=== PATIENT | male | born 1975 | race Caucasian/White ===

== ENCOUNTER 2020-05-11 05:42 | Outpatient (RCR) | payer BC ==
[~2020-05-11] VITALS: Ht 182.9 cm; Wt 105.3 kg
[~2020-05-11 05:42] MED LIST: DIAZ5TAB49 PO
[2020-05-14] MEDS ORDERED: HYDR-4342 PO (09:59)
== END 2020-05-11 11:20 | disposition home or self-care (01) ==
LOC: PREOP 05:42
PROVIDERS: ATTEND Surgery
DX: Z01.812 Encounter for preprocedural laboratory examination (principal); K43.2 Incisional hernia without obstruction or gangrene; Z20.828 Contact with and (suspected) exposure to other viral communicable diseases
CPT/HCPCS: 87635

== ENCOUNTER 2020-05-14 09:15 | Day surgery (SDC) | payer BC ==
[2020-05-14] VITALS (11 sets, daily range): BP systolic 123–146; BP diastolic 63–90
[~2020-05-14] VITALS: Ht 182.9 cm; Wt 105.3 kg
--- NOTE | 2020-05-14 09:57 | Progress Note-Pre Operative ---
Pre-Operative Progress Note H&P Reviewed The H&P was reviewed, patient examined and no changes noted. Date Seen by Provider: May 14, 2020 Time Seen by Provider: 09:50 Date H&P Reviewed: May 14, 2020 Time H&P Reviewed: 09:50 Pre-Operative Diagnosis: ventral abdominal incisional hernia LINDA NOBLES MD May 14, 2020 09:57
[2020-05-14] MEDS ORDERED: HYDR-4342 PO (09:59)
--- OUTSIDE RECORDS SUMMARY | 2020-05-14 09:59 | XMS REPORT | Clinical Summary ---
Author Author Admin, Leland Goldberg Organization [facility] Address Unknown Phone Unavailable Allergies, Adverse Reactions, Alerts Allergy Name Reaction Description Start Date Severity Status Pr ovider Allergies Unknown Conditions or Problems Problem Name Problem Code Onset Date Status Entry Date Provider Comment Standard Description Annotate HEALTH EXAMINATION OF DEFINED SUBPOPULATION V70.5 Act max Serenity M[facility] examination of defined subpopulat ions Medication List Medication Instructions Start Date Stop Date Generic Name NDC Status Provider Patient Instruction Drug Treatment Unknown - unknown Procedures Code Procedure Name Date Entry Date Standard Desc ription [id number] Drug Screen Collection - XRAY USE ONLY 0 09:08:55 CDT
--- OUTSIDE RECORDS SUMMARY | 2020-05-14 09:59 | XMS REPORT ---
Author Author Leland COTTO Organization [employer] Address Unknown Phone Unavailable Care Team Providers Care Elementary Supervisor Name Role Phone BRANDO COTTO CP Unavailable Allergies, Adverse Reactions, Alerts Substance Reaction Event Type N.K.D.A. Info Not Available Non Drug Allergy Problems Problem Type Condition Code Onset Dates Condition Statu s Assessment Dental caries K02.9 Active Medications Medication Code System Code Instructions Start Date End Date Status Dosage Valium [facility] [address]-56 not define d ibuprofen NDC 0 not defined [place] [facility] [address]-79 5-325 MG Orally every 6 hrs Nov 11, 2015 J an 2015 1 tablet as needed Lexapro [facility] [address]-62 not define d Penicillin V Potassium [facility] [address]-07 not defined Procedures Procedure Coding System Code Date EXTRAC ERUPTED TOOTH/EXPOSED ROOT CPT-4 D7140 Nov 09, 2015 Vital Signs Date/Time: Nov 11, 2015 Blood Pressure Diastolic 76 mmHg Blood Pressure Systolic 130 mmHg Results No Known Results Summary Purpose [employer] Submission
--- OUTSIDE RECORDS SUMMARY | 2020-05-14 09:59 | XMS REPORT | Clinical Summary ---
Author Author Admin, Leland Goldberg Organization [facility] Address Unknown Phone Unavailable Allergies, Adverse Reactions, [...] Name Date Entry Date Standard Desc ription [id number] Drug Screen Collection - XRAY USE ONLY 0 09:08:55 CDT
--- OUTSIDE RECORDS SUMMARY | 2020-05-14 09:59 | XMS REPORT | Continuity of Care Document ---
Author Organization Unknown Address Unknown Phone Unavailable Allergies Active Description Code Type Severity Reaction Onset Reported/Identified Relationship to Patient Clinical Status Yes No Known Drug Allergies [id number] Drug Allergy Unknown N/A 05/07/2020 Medications There is no data. Problems Date Dx Coded Attending Type Code Diagnosis Diagnosed By 06/11/2019 Z00.8 HEAL TH EXAMINATION OF DEFINED SUBPOPULATION Procedures There is no data. Results Test Result Range Urine Culture - 05/01/20 15:11 PRELIM CULTURE RESULTS No Growth 24 hours FINAL CULTURE RESULTS No Growth 48 hours MEDIA PLATED Setup at 15:18 on 05/01/2020 CULTURE SOURCE culture Encounters ACCT No. Visit Date/Time Discharge Status Pt. Type Provider Facility Loc./Unit Complaint [id number] 07/02/2019 15:47:00 ACT Unknown [id number] 05/01/2020 11:59:00 05/01/2020 23:59 :00 DIS Outpatient Flori Long [id number] 05/01/2020 07:44:00 05/01/2020 23:59 :00 DIS Outpatient Flori Long [id number] 05/11/2020 05:42:00 020 11:20:00 DIS Outpatient LINDA NOBLES MD [facility] [id number] 05/14/2020 09:15:[address] Outpatient LINDA NOBLES MD [facility]
--- OUTSIDE RECORDS SUMMARY | 2020-05-14 09:59 | XMS REPORT ---
Author Author Leland COTTO Organization [employer] Address Unknown Phone Unavailable Care Team Providers Care Sluice Tender Name Role Phone BRANDO COTTO CP Unavailable Allergies, Adverse Reactions, Alerts Substance Reaction Event Type N.K.D.A. Info Not Available Non Drug Allergy Problems Problem Type Condition Code Onset Dates Condition Statu s Assessment Dental examination Z01.20 Active Medications Medication Code System Code Instructions Start Date End Date Status Dosage Penicillin V Potassium [facility] [id number] not defined Valium [facility] [address]-07 not define d Lexapro [facility] [address]-72 not define d [place] [facility] [address]-73 5-325 MG Orally every 6 hrs Nov 09, 2015 J an 2015 1 tablet as needed ibuprofen NDC 0 not defined Procedures Procedure Coding System Code Date INTRAORL-PERIAPICAL 1 FILM 95210 CPT-4 D0220 Nov 09, 2015 LTD ORAL EVALUATION - PROBLEM FOCUS CPT-4 D0140 Nov 09, 2015 Results No Known Results Summary Purpose [employer] Submission
[2020-05-14] MEDS ORDERED: ONDANSETRON 4 MG/2 ML (SDV) Z0FRAN IVP PRN ×2 (10:00→13:15)
[2020-05-14] MEDS ORDERED: oxyCODONE/APAP 5/325MG (PERCOCET 5) TABLET PO PRN (10:00)
[2020-05-14] MEDS ORDERED: ACETAMINOPHEN 325 MG TABLET PO PRN (10:00)
[2020-05-14] MEDS ORDERED: ceFAZolin 2 GM IV Premixed 50 ML IV ONE (10:00)
[2020-05-14] MEDS ORDERED: morphine INJ 10 MG/ML 1ML (SYR OR VIAL) IVP PRN ×2 (10:00)
--- NOTE | 2020-05-14 10:00 | Discharge Inst-Surgical ---
D/C Lap Instructions-GIULIANO New, Converted, or Re-Newed RX: RX on Chart Follow Up Appt in 2 weeks Activity as tolerated No driving for 24 hours No driving while on pain medications Incentive Spirometry use every 2 hours while awake Regular Diet Symptoms to Report: Fever over 101 degree F, Nausea/Vomiting Infection Signs and Symptoms to report: Increased redness, Foul odor of wound, Increased drainage Bathing instructions: May shower Operative Area Clean/Dry; Keep incision clean/dry If any problems/questions: Contact your physician or go to Emergency Room LINDA NOBLES MD May 14, 2020 10:00
[2020-05-14] MEDS ORDERED: MIDAZOLAM 2 MG/2 ML (VERSED) VIAL IV ONE (10:15)
[2020-05-14] MEDS: LACTATED RINGERS 1,000 ML IV PRN ×2 (10:33→12:30)
[2020-05-14] MEDS ORDERED: BUP/EPI 0.5% 1:200,000 (SENSORCAINE) 30 ML VIAL ONE (10:42)
[2020-05-14] MEDS ORDERED: proPOfol 200 MG/20 ML (DIPRIVAN) VIAL IV ONE ×2 (11:13→13:07)
[2020-05-14] MEDS ORDERED: ONDANSETRON 4 MG/2 ML (SDV) Z0FRAN ONE (11:13)
[2020-05-14] MEDS ORDERED: ROCURONIUM 10 MG/ML 5 ML SYRINGE IV ONE (11:13)
[2020-05-14] MEDS ORDERED: MIDAZOLAM 2 MG/2 ML (VERSED) VIAL ONE ×2 (11:13→13:22)
[2020-05-14] MEDS ORDERED: LIDOCAINE PF 2% 5 ML (XYLOCAINE) VIAL ONE (11:13)
[2020-05-14] MEDS ORDERED: SEVOFLURANE (ULTANE) 15 ML INHAL SOLN ONE ×4 (11:13→12:47)
[2020-05-14] MEDS ORDERED: fentaNYL INJECTION 100 MCG/2 ML AMP ONE (11:13)
[2020-05-14] MEDS ORDERED: NEOSTIGMINE 3 MG/3 ML VIAL ONE (12:47)
[2020-05-14] MEDS ORDERED: GLYCOPYRROLATE 0.2 MG/ML (ROBINUL) 2 ML VIAL ONE (12:47)
--- NOTE | 2020-05-14 13:03 | Progress Note-Post Operative ---
Post-Operative Progess Note Surgeon (s)/Regulatory Specialist (s) Surgeon LINDA NOBLES MD Regulatory Specialist: patrick bolanos SCIENTIFIC WRITER Pre-Operative Diagnosis ventral abdominal incisional hernia Post-Operative Diagnosis same Procedure & Operative Findings Date of Procedure 05/14/20 Procedure Performed/Findings ventral abdominal incisional hernia repair with mesh. Anesthesia Type get Estimated Blood Loss Estimated blood loss (mL): minimal Specimens/Packing Specimens Removed hernia sac LINDA NOBLES MD May 14, 2020 13:03
[2020-05-14] MEDS ORDERED: MEPERIDINE (DEMEROL) INJ 50 MG/ML IVP ONE (13:15)
[2020-05-14] MEDS ORDERED: morphine INJ 10 MG/ML 1ML (SYR OR VIAL) IVP ONE (13:15)
--- NOTE | 2020-05-14 13:16 | Anesthesia-General Post-Op ---
General Patient Condition Mental Status/LOC: Same as Preop Cardiovascular: Satisfactory Nausea/Vomiting: Absent Respiratory: Satisfactory Pain: Controlled Complications: Absent Post Op Complications Complications None Follow Up Care/Instructions Patient Instructions None needed. Anesthesia/Patient Condition Patient Condition Patient is doing well, no complaints, stable vital signs, no apparent adverse anesthesia problems. No complications reported per nursing. MATEUS MCCULLOUGH CRNA May 14, 2020 13:16
[2020-05-14] MEDS ORDERED: morphine INJ 10 MG/ML 1ML (SYR OR VIAL) ONE (13:18)
--- NOTE | 2020-05-14 14:45 | OPERATIVE REPORT ---
DATE OF SERVICE: 05/14/2020 PREOPERATIVE DIAGNOSIS: Ventral abdominal incisional hernia. POSTOPERATIVE DIAGNOSIS: Ventral abdominal incisional hernia with the fascial defect approximately 2.5 cm in size. PROCEDURE PERFORMED: Ventral abdominal incisional hernia repair with mesh. SURGEON: Lidna Nobles MD. FLATWORK WASHER: Nish Byers APRN. ANESTHESIA: General endotracheal. ESTIMATED BLOOD LOSS: Minimal. FINDINGS: Omentum within the hernia sac. DISPOSITION: The patient tolerated the procedure well. INDICATION FOR PROCEDURE: The patient is a 44-year-old male, who presented with pain in the umbilical region. He states that he did develop an umbilical hernia and this was repaired approximately 10 years ago. He states that shortly after, he had had a reoccurrence with a palpable bulge as well as a mild pain. This was initially mild; however, over the years, has grown larger in size and become more painful. Upon examination, he was found to have a ventral abdominal incisional hernia, which was reducible; however, tender to palpation. This was slightly supraumbilical. DESCRIPTION OF PROCEDURE: The patient was brought to the operating room and laid supine on the table. After adequate IV pain and sedative medications and general endotracheal intubation, the abdomen was prepped and draped in a standard surgical fashion. A 0.5% Marcaine with epinephrine was then used to anesthetize the supraumbilical rim. A crescent-shaped skin incision was then made using a 15 blade. The hernia sac was identified and completely dissected out using electrocautery as well as blunt dissection until we reached the fascial base. The hernia sac was then opened using cautery with only omentum within the hernia sac. The entire hernia sac was then excised under direct visualization using cautery. The fascial defect was approximately 2.5 cm in size. An 8 cm coated polypropylene mesh was then placed into the defect and sutured transfascially and concentrically around the mesh using 0 Prolene interrupted sutures. Good hemostasis was observed. The subcutaneous tissue was then reapproximated using 3-0 Vicryl interrupted sutures. The skin was then closed using 4-0 Monocryl running subcuticular suture. Wound was then cleaned and covered with Dermabond. The umbilicus was then filled with tonsil sponges followed by 4 x 4 gauze followed by large Op-Site. The patient tolerated the procedure well. We will start IV normal pain medication as well as a clear liquid diet. Once he is tolerating clears, has good pain control with oral pain medications and ambulating well, we will discharge him home. Job ID: [id number] DocumentID: [id number] Dictated Date: 05/14/2020 13:13:50 Supervisor Irrigation Date: 05/14/2020 14:44:28 Dictated By: LINDA NOBLES MD
== END 2020-05-14 15:39 | disposition home or self-care (01) ==
LOC: SDC 09:15
PROVIDERS: ATTEND Surgery
DX: K43.2 Incisional hernia without obstruction or gangrene (principal); F41.9 Anxiety disorder, unspecified; F32.9 Major depressive disorder, single episode, unspecified; Z87.891 Personal history of nicotine dependence; Z83.3 Family history of diabetes mellitus
CPT/HCPCS: 49560; 49568; 87081; C1781